=== PATIENT | female | born 1980 | race African-American/Black ===

== ENCOUNTER 2018-06-24 06:05 | Inpatient (IN) | payer MEDICAID, OTHER ==
[~2018-06-24] VITALS: Ht 170.2 cm; Wt 75.4 kg
[2018-06-24] MEDS ORDERED: SODIUM CHLORIDE 0.9% 1,000 ML IV ONE (06:31)
[2018-06-24 07:10] LABS: CHLORIDE 90 mEq/L (98-107)
[2018-06-24 07:13] LABS: HCG SCREEN NEGATIVE
[2018-06-24 07:15] LABS: INR 1.1; PROTHROMBIN TIME 10.7 sec (9.1-11.1)
[2018-06-24 07:17] LABS: BASOPHILS % 0.6 % (0.0-2.0); EOSINOPHILS % 0.4 % (0.0-5.0); LYMPHOCYTES % 12.1 % (20.0-50.0); MEAN CORPUSCULAR HEMOGLOBIN 26.5 pg (28.0-32.0); MEAN CORPUSCULAR VOLUME 87.5 fL (81.0-99.0); MEAN PLATELET VOLUME 7.2 fl (7.4-10.4); MONOCYTES % 6.2 % (2.0-8.0); NEUTROPHILS % 80.7 % (40.0-76.0); PLATELET 653 x1000/uL (130-400); RED BLOOD CELL COUNT 1.44 mill/uL (4.2-5.4); RED CELL DISTRIBUTION WIDTH 18.7 % (11.6-14.6)
[2018-06-24 07:32] LABS: HEMATOCRIT. 12.6 % (36.0-48.0); HEMOGLOBIN. 3.8 g/dL (12.0-16.0)
[2018-06-24] MEDS ORDERED: CLONIDINE 0.1MG TABLET PO PRN (15:15)
[2018-06-24] MEDS ORDERED: ACETAMINOPHEN 325MG TABLET PO PRN (15:15)
[2018-06-24] MEDS ORDERED: MAGNESIUM/ALUMINUM HYDROXIDE/SIMETHICONE 30ML UDC PO PRN (15:15)
[2018-06-24] MEDS ORDERED: DOCUSATE SODIUM 100MG CAPSULE PO PRN (15:15)
[2018-06-24] MEDS ORDERED: IPRATROPIUM/ALBUTEROL 0.5-3(2.5)MG/3ML NEB INH PRN (15:15)
[2018-06-24 16:32] LABS: TOTAL IRON BINDING CAPACITY 371 ug/dL (250-450)
[2018-06-24] MEDS: ONDANSETRON HCL 4MG/2ML INJ IV PRN ×2 (17:32→19:43)
[2018-06-24] MEDS ORDERED: PANTOPRAZOLE SODIUM 40 MG/VIAL IV NR (19:45)
[2018-06-24 20:04] LABS: MEAN CORPUSCULAR HEMOGLOBIN 26.9 pg (28.0-32.0); MEAN CORPUSCULAR VOLUME 84.2 fL (81.0-99.0); PLATELET 578 x1000/uL (130-400); RED BLOOD CELL COUNT 2.48 mill/uL (4.2-5.4); RED CELL DISTRIBUTION WIDTH 15.5 % (11.6-14.6)
[2018-06-24 20:05] LABS: HEMOGLOBIN 6.7 g/dL (12.0-16.0)
[2018-06-24 20:06] LABS: HEMATOCRIT 20.9 % (36.0-48.0)
[2018-06-25] VITALS (29 sets, daily range): BP systolic 104–150; BP diastolic 58–88
[2018-06-25 01:05] LABS: MEAN CORPUSCULAR HEMOGLOBIN 27.6 pg (28.0-32.0); MEAN CORPUSCULAR VOLUME 83.1 fL (81.0-99.0); PLATELET 545 x1000/uL (130-400); RED BLOOD CELL COUNT 2.31 mill/uL (4.2-5.4); RED CELL DISTRIBUTION WIDTH 15.7 % (11.6-14.6)
[2018-06-25 01:09] LABS: HEMATOCRIT 19.2 % (36.0-48.0); HEMOGLOBIN 6.4 g/dL (12.0-16.0)
[2018-06-25] MEDS: SODIUM CHLORIDE 0.9% 1,000 ML IV SCH ×2 (03:41→14:19)
[2018-06-25] MEDS ORDERED: PANTOPRAZOLE SODIUM 40 MG/VIAL IV SCH (09:00)
[2018-06-25] MEDS ORDERED: POTASSIUM CHLORIDE 20MEQ TABLET SR PO SCH (11:15)
[2018-06-25] MEDS ORDERED: FENTANYL CITRATE/PF 50MCG/ML 2ML VIAL ONE (12:08)
[2018-06-25] MEDS ORDERED: MIDAZOLAM HCL 5 MG/5 ML VIAL ONE (12:08)
[2018-06-25 12:45] LABS: BASOPHILS % 0.8 % (0.0-2.0); EOSINOPHILS % 0.9 % (0.0-5.0); HEMATOCRIT. 23.4 % (36.0-48.0); LYMPHOCYTES % 20.5 % (20.0-50.0); MEAN CORPUSCULAR VOLUME 84.8 fL (81.0-99.0); MEAN PLATELET VOLUME 6.6 fl (7.4-10.4); MONOCYTES % 8.1 % (2.0-8.0); NEUTROPHILS % 69.7 % (40.0-76.0); PLATELET 464 x1000/uL (130-400); RED BLOOD CELL COUNT 2.76 mill/uL (4.2-5.4); RED CELL DISTRIBUTION WIDTH 15.2 % (11.6-14.6)
[2018-06-25 12:57] LABS: CHLORIDE 97 mEq/L (98-107)
[2018-06-25 13:03] LABS: PHOSPHORUS 3.3 mg/dL (2.5-4.9)
[2018-06-25 16:06] LABS: HEMATOCRIT 24.4 % (36.0-48.0); HEMOGLOBIN 8.4 g/dL (12.0-16.0); MEAN CORPUSCULAR HEMOGLOBIN 29.1 pg (28.0-32.0); PLATELET 508 x1000/uL (130-400); RED BLOOD CELL COUNT 2.87 mill/uL (4.2-5.4); RED CELL DISTRIBUTION WIDTH 15.3 % (11.6-14.6)
[2018-06-25] MEDS: FERROUS SULFATE 325MG TABLET PO SCH (16:47)
[2018-06-25] MEDS: DOCUSATE SODIUM 100MG CAPSULE PO SCH (16:47)
[2018-06-25 20:17] LABS: HEMATOCRIT 23.5 % (36.0-48.0); HEMOGLOBIN 7.8 g/dL (12.0-16.0); MEAN CORPUSCULAR HEMOGLOBIN 28.3 pg (28.0-32.0); MEAN CORPUSCULAR VOLUME 85.1 fL (81.0-99.0); PLATELET 492 x1000/uL (130-400); RED BLOOD CELL COUNT 2.76 mill/uL (4.2-5.4); RED CELL DISTRIBUTION WIDTH 15.5 % (11.6-14.6)
[2018-06-25] MEDS: PANTOPRAZOLE SODIUM 40 MG/VIAL IV SCH (20:18)
[2018-06-26] VITALS (25 sets, daily range): BP systolic 119–162; BP diastolic 47–87
[2018-06-26 00:41] LABS: HEMATOCRIT 23.3 % (36.0-48.0); HEMOGLOBIN 7.8 g/dL (12.0-16.0); MEAN CORPUSCULAR HEMOGLOBIN 28.4 pg (28.0-32.0); MEAN CORPUSCULAR VOLUME 85.1 fL (81.0-99.0); PLATELET 487 x1000/uL (130-400); RED BLOOD CELL COUNT 2.74 mill/uL (4.2-5.4); RED CELL DISTRIBUTION WIDTH 15.4 % (11.6-14.6)
[2018-06-26] MEDS: SODIUM CHLORIDE 0.9% 1,000 ML IV SCH (03:03)
[2018-06-26 05:52] LABS: HEMATOCRIT 23.5 % (36.0-48.0); HEMOGLOBIN 7.8 g/dL (12.0-16.0); MEAN CORPUSCULAR HEMOGLOBIN 28.5 pg (28.0-32.0); MEAN CORPUSCULAR VOLUME 85.8 fL (81.0-99.0); PLATELET 525 x1000/uL (130-400); RED BLOOD CELL COUNT 2.73 mill/uL (4.2-5.4); RED CELL DISTRIBUTION WIDTH 15.3 % (11.6-14.6)
[2018-06-26 06:14] LABS: CHLORIDE 102 mEq/L (98-107)
[2018-06-26] MEDS: FERROUS SULFATE 325MG TABLET PO SCH ×5 (06:23→18:57)
[2018-06-26 08:06] LABS: HEMATOCRIT 25.2 % (36.0-48.0); HEMOGLOBIN 8.5 g/dL (12.0-16.0); MEAN CORPUSCULAR HEMOGLOBIN 28.8 pg (28.0-32.0); MEAN CORPUSCULAR VOLUME 85.8 fL (81.0-99.0); PLATELET 563 x1000/uL (130-400); RED BLOOD CELL COUNT 2.94 mill/uL (4.2-5.4); RED CELL DISTRIBUTION WIDTH 15.1 % (11.6-14.6)
[2018-06-26] MEDS ORDERED: POTASSIUM CHLORIDE 20MEQ TABLET SR PO SCH (09:15)
[2018-06-26] MEDS: DOCUSATE SODIUM 100MG CAPSULE PO SCH ×4 (10:00→18:56)
[2018-06-26] MEDS: PANTOPRAZOLE SODIUM 40 MG/VIAL IV SCH ×2 (10:17→22:56)
[2018-06-26] MEDS: ASCORBIC ACID 500 MG TABLET PO SCH ×3 (10:17→18:57)
[2018-06-26] MEDS: ONDANSETRON HCL 4MG/2ML INJ IV PRN (14:11)
[2018-06-26 18:22] LABS: HEMATOCRIT 25.6 % (36.0-48.0); HEMOGLOBIN 8.4 g/dL (12.0-16.0); MEAN CORPUSCULAR HEMOGLOBIN 28.4 pg (28.0-32.0); MEAN CORPUSCULAR VOLUME 86.5 fL (81.0-99.0); PLATELET 566 x1000/uL (130-400); RED BLOOD CELL COUNT 2.96 mill/uL (4.2-5.4); RED CELL DISTRIBUTION WIDTH 15.6 % (11.6-14.6)
[2018-06-26 21:35] LABS: HEMATOCRIT 24.1 % (36.0-48.0); HEMOGLOBIN 7.9 g/dL (12.0-16.0); MEAN CORPUSCULAR HEMOGLOBIN 28.4 pg (28.0-32.0); MEAN CORPUSCULAR VOLUME 86.5 fL (81.0-99.0); PLATELET 530 x1000/uL (130-400); RED BLOOD CELL COUNT 2.78 mill/uL (4.2-5.4); RED CELL DISTRIBUTION WIDTH 15.6 % (11.6-14.6)
[2018-06-27] VITALS (12 sets, daily range): BP systolic 112–130; BP diastolic 50–75
[2018-06-27 05:52] LABS: CHLORIDE 106 mEq/L (98-107)
[2018-06-27 05:53] LABS: BASOPHILS % 0.5 % (0.0-2.0); EOSINOPHILS % 2.8 % (0.0-5.0); HEMATOCRIT. 24.6 % (36.0-48.0); LYMPHOCYTES % 23.6 % (20.0-50.0); MEAN CORPUSCULAR HEMOGLOBIN 28.8 pg (28.0-32.0); MEAN CORPUSCULAR VOLUME 88.1 fL (81.0-99.0); MONOCYTES % 7.9 % (2.0-8.0); NEUTROPHILS % 65.2 % (40.0-76.0); PLATELET 556 x1000/uL (130-400); RED BLOOD CELL COUNT 2.79 mill/uL (4.2-5.4)
[2018-06-27] MEDS: FERROUS SULFATE 325MG TABLET PO SCH ×2 (06:01→12:07)
[2018-06-27] MEDS: ASCORBIC ACID 500 MG TABLET PO SCH ×2 (06:01→12:07)
[2018-06-27 06:08] LABS: T4 FREE 1.08 ng/dL (0.76-1.46)
[2018-06-27] MEDS: DOCUSATE SODIUM 100MG CAPSULE PO SCH (09:16)
[2018-06-27] MEDS: PANTOPRAZOLE SODIUM 40 MG/VIAL IV SCH (09:17)
== END 2018-06-27 14:23 | disposition home or self-care (01) | DRG 253 ==
LOC: ER 06:05 → MICUNO 07:54 → EDBEDREQ 07:57 → EDBEDREQSVC 19:00 → ENRESERV 06-25 02:15 → 6WST 06-27 09:04
PROVIDERS: ADMIT Family Medicine Adult Medicine; ATTEND Family Medicine Adult Medicine
PROC: 30233N1 Transfusion of Nonautologous Red Blood Cells into Peripheral Vein, Percutaneous Approach (ICD-10-PCS; principal; 2018-06-24)
DX: K92.0 Hematemesis (principal); E43 Unspecified severe protein-calorie malnutrition; G90.8 Other disorders of autonomic nervous system; D64.9 Anemia, unspecified; E87.6 Hypokalemia; I10 Essential (primary) hypertension; F17.210 Nicotine dependence, cigarettes, uncomplicated; Z87.442 Personal history of urinary calculi; Z88.0 Allergy status to penicillin; Z88.6 Allergy status to analgesic agent; Z68.26 Body mass index [BMI] 26.0-26.9, adult
CPT/HCPCS: 36415; 71045; 80048; 82270; 82728; 83540; 83550; 83735; 84100; 84439; 84443; 84481; 84484; 84703; 85027; 85044; 86850; 86900; 86920; 93005; 93970; 96374; 99285; C9113; J2250; J2405; J3010; J7030; J7040; P9016; P9021